=== PATIENT | female | born 1935 | race Caucasian/White ===

== ENCOUNTER 2016-09-26 12:01 | Emergency (ER) | payer MEDICARE, BC ==
[~2016-09-26] VITALS: Ht 172.7 cm; Wt 61.2 kg
[2016-09-26] MEDS ORDERED: SYNTHROID75 MCG ORAL (12:10)
[2016-09-26 12:26] VITALS: BP 127/70
[2016-09-26] MEDS ORDERED: Tylenol #3 tab (300mg/30mg) ORAL ONE (13:00)
[2016-09-26] MEDS ORDERED: ACETAMINOPHEN-1 EAC1 ORAL (13:24)
--- NOTE | 2016-09-26 13:43 | Emergency Room Report ---
History of Present Illness General Chief Complaint: Lower Extremity Injury Source: Patient Present Illness HPI 81YOF walk-in with sharp pain to top of right foot today. 1 week prior, had accidental ankle twist from one step and found to have ?fracture at base of right 5th toe. Went to outside ER. Followed up with Ortho the next day, was placed in walking boot. Has been taking ibuprofen for pain. Has Ortho followup in 1 month. No new trauma. Pain is sharp, burning pain to top of right foot. Allergies: Coded Allergies: No Known Allergies (Unverified , 09/26/16) Patient History Past Medical History: none Past Surgical History: none Pertinent Family History: none Social History: Denies: alcohol use, drug use, smoking Now: No Immunizations: UTD Reviewed Nursing Documentation: PMH: Agreed, PSxH: Agreed Nursing Documentation-PMH Past Medical History: No Stated History Review of Systems All Other Systems: negative except mentioned in HPI Physical Exam Vital Signs Date Time Temp Pulse Resp B/P Pulse Ox O2 Delivery O2 Flow Rate FiO2 09/26/16 12:07 98.2 70 18 127/70 100 Room Air Sp02 EP Interpretation: reviewed, normal General Appearance: normal inspection, well appearing, no apparent distress, alert, GCS 15, non-toxic Head: normocephalic, atraumatic Eyes: bilateral eye EOMI, bilateral eye PERRL ENT: normal ENT inspection, hearing grossly normal, normal voice Neck: normal inspection, full range of motion, supple, no bony tend Respiratory: normal inspection, lungs clear, normal breath sounds, no respiratory distress, no retraction, no wheezing Cardiovascular #1: regular rate, rhythm, no edema Gastrointestinal: normal inspection, normal bowel sounds, non tender, soft, no guarding, no hernia Genitourinary: no CVA tenderness Musculoskeletal: normal inspection, back normal, normal range of motion, Paula' s Sign negative Neurologic: normal inspection, alert, oriented x3, responsive, seo consultant III-XII nml as tested, motor strength/tone normal, speech normal Psychiatric: normal inspection, judgement/insight normal, mood/affect normal Skin: normal inspection, normal color, no rash Medical Decision Making Diagnostic Impression: Primary Impression: Foot fracture, right Qualified Codes: S92.901D - Unspecified fracture of right foot, subsequent encounter for fracture with routine healing ER Course Right foot pain - VSS. Afebrile. - Right foot fx shows known right 5th foot base metatarsal fx, pseudo vs bazzi less likely - No other foot fx seen - Improved pain with T#3 - Advised Ortho followup as scheduled - Non-weight bearing, boot Other X-Ray Diagnostic Results # of Views/Limited Vs Complete: 3 View EP Interpretation: Yes Interpretation: no dislocation, no soft tissue swelling, other - Pseudo-bazzi fx right foot Indication: Pain Impression: Other - fx Interpreting ER Provider: Caryn Last Vital Signs Date Time Temp Pulse Resp B/P Pulse Ox O2 Delivery O2 Flow Rate FiO2 09/26/16 12:26 98.2 18 127/70 100 Room Air 09/26/16 12:07 70 Status: improved Disposition: HOME, SELF-CARE Condition: Improved Scripts Acetaminophen With Codeine (T#3) (TYLENOL #3 TAB*) Y Tab 1 TAB ORAL Q8H Y for For Pain for 7 Days, #30 TAB Prov: MERNA BIGGS M.D. 09/26/16 Patient Instructions: Metatarsal Fracture Additional Instructions: - Keep boot on as long as recommended by Orthopedics - Take Tylenol #3 as needed for severe pain - Follow up with Orthopedics at next appointment MERNA BIGGS M.D. Sep 26, 2016 13:43
[2016-09-26 13:45] VITALS: BP 125/68
--- NOTE | 2016-09-27 10:02 | Diagnostic Imaging Report ---
Indication: PAIN Technique: 3 views right foot Comparison: none Findings: There is a transverse fracture of the base of the fifth metatarsal. This is nondisplaced. This is distracted by a few millimeters. No other acute fractures. No dislocations. There is mild hammertoe deformity of the second through fifth digits. Bones appear somewhat osteoporotic Impression: Positive for fifth metatarsal base fracture Osteoporotic change Electronic medical record indicates that emergency department physician is aware of these findings
== END 2016-09-26 13:43 | disposition home or self-care (01) ==
LOC: EDBD 12:01 → EMR 13:19 → EDBD 13:19 → EMR 13:43
DX: S92.901D Unspecified fracture of right foot, subsequent encounter for fracture with routine healing (principal); X58.XXXD Exposure to other specified factors, subsequent encounter
CPT/HCPCS: 99283